=== PATIENT | female | born 1985 | race African-American/Black ===

== ENCOUNTER 2020-01-17 19:18 | Emergency (ER) | payer MEDICAID, OTHER ==
[~2020-01-17] VITALS: Ht 165.1 cm; Wt 109.0 kg
[2020-01-17] MEDS ORDERED: HYDROCODONE/ACETAMINOPHEN 5/325MG TABLET PO ONE (20:15)
[2020-01-17 22:38] VITALS: BP 118/66
== END 2020-01-17 22:40 | disposition home or self-care (01) ==
LOC: ER 19:18
DX: S42.012A Anterior displaced fracture of sternal end of left clavicle, initial encounter for closed fracture (principal); V47.5XXA Car driver injured in collision with fixed or stationary object in traffic accident, initial encounter; Y93.89 Activity, other specified; Y92.410 Unspecified street and highway as the place of occurrence of the external cause
CPT/HCPCS: 71045; 73030; 81025; 99284